=== PATIENT | male | born 1995 | race Caucasian/White ===

== ENCOUNTER 2020-10-22 19:53 | Emergency (ER) | payer OTHER ==
[~2020-10-22] VITALS: Ht 170.2 cm; Wt 68.2 kg
[2020-10-22 19:56] VITALS: BP 132/79
[2020-10-22] MEDS ORDERED: IBUP-2070 PO (20:05)
== END 2020-10-22 20:30 | disposition home or self-care (01) ==
LOC: EMS 19:59
DX: R13.10 Dysphagia, unspecified (principal); R09.89 Other specified symptoms and signs involving the circulatory and respiratory systems; F17.210 Nicotine dependence, cigarettes, uncomplicated; F12.90 Cannabis use, unspecified, uncomplicated
CPT/HCPCS: 99281; Z7502

== ENCOUNTER 2020-10-23 17:04 | Emergency (ER) | payer OTHER ==
[~2020-10-23] VITALS: Ht 170.2 cm; Wt 68.2 kg
[~2020-10-23 17:04] MED LIST: IBUP-2070 PO
[2020-10-23] MEDS ORDERED: PB/HYOSCY/ATR/SCOP/LIDO/MAALOX 55 ML BOTTLE PO ONE (19:15)
[2020-10-23 21:00] VITALS: BP 136/60
[2020-10-23] MEDS ORDERED: FAMOTIDINE 20 MG TABLET PO ONE (21:00)
== END 2020-10-23 21:05 | disposition home or self-care (01) ==
LOC: EMS 17:04
DX: K20.90 Esophagitis, unspecified without bleeding (principal); M54.2 Cervicalgia; F17.210 Nicotine dependence, cigarettes, uncomplicated; F12.90 Cannabis use, unspecified, uncomplicated
CPT/HCPCS: 70360; 70490; 99284; 71045-TC